=== PATIENT | male | born 1995 | race Caucasian/White ===

== ENCOUNTER 2024-06-07 22:30 | Emergency (ER) | payer OTHER ==
[2024-06-07] MEDS: Lidocaine 2% Viscous Solution 15 ML UD PO ONE (23:23)
== END 2024-06-07 23:36 | disposition home or self-care (01) ==
LOC: MW.ED 22:30
DX: K22.89 Other specified disease of esophagus (principal); F17.210 Nicotine dependence, cigarettes, uncomplicated; Z75.8 Other problems related to medical facilities and other health care
CPT/HCPCS: 99283; A9270; 99282

== ENCOUNTER 2024-06-08 07:42 | Emergency (ER) | payer SELFPAY | END 2024-06-08 09:38 | disposition home or self-care (01) | LOC: MW.ED 07:42 | DX: T18.108A Unspecified foreign body in esophagus causing other injury, initial encounter (principal); W44.9XXA Unspecified foreign body entering into or through a natural orifice, initial encounter; Y93.89 Activity, other specified | CPT/HCPCS: 70360; 70360-26; 71045; 71045-26; 99283 ==